=== PATIENT | female | born 1960 ===

== ENCOUNTER 2017-04-08 03:50 | Emergency (ER) | payer OTHER ==
[2017-04-08 04:09] VITALS: RESP 18; TEMP 98.6; O2SAT 100
[2017-04-08 04:57] LABS: HEMATOCRIT 40.7 % (34.0-47.0); MEAN CELL VOLUME 90.9 fl (81.0-99.0); MEAN CORPUSCULAR HEMOGLOBIN 31.1 pg (27.0-31.0); MEAN CORPUSCULAR HGB CONC 34.2 g/dL (33.0-37.0); RED CELL DISTRIBUTION WIDTH 13.9 % (11.5-14.5); WHITE BLOOD COUNT 8.1 K/uL (4.8-10.8)
--- NOTE | 2017-04-08 05:03 | ED PDOC ---
HPI: Abdomen Time Seen by Provider: 04/08/17 03:54 Chief Complaint (Nursing): Abdominal Pain Chief Complaint (Provider): Right sided abdominal tenderness History Per: Patient History/Exam Limitations: no limitations Onset/Duration Of Symptoms: Days Outside of [place] travel?: No Current Symptoms Are (Timing): Still Present Severity: Mild Pain Scale Rating Of: 4 Location Of Pain/Discomfort: RUQ, RLQ Quality Of Discomfort: Other ("pinching") Additional Complaint(s): Pt reports 5 days of a pinching right sided abdominal pain. Pt denies N/V/D. Pt states she has been eating and drinking normally. Past Medical History Reviewed: Historical Data, Nursing Documentation, Vital Signs Vital Signs: Last Vital Signs Temp 98.6 F 04/08/17 04:03 Pulse 79 04/08/17 04:03 Resp 18 04/08/17 04:03 BP 154/83 H 04/08/17 04:03 Pulse Ox 100 04/08/17 06:06 - Medical History PMH: No Chronic Diseases - Surgical History Surgical History: No Surg Hx - Family History Family History: States: No Known Family Hx - Living Arrangements Living Arrangements: With Family - Social History Current smoker - smoking cessation education provided: No Alcohol: None Drugs: Denies - Home Medications Home Medications: Ambulatory Orders Medication Instructions Recorded Benzonatate [Tessalon Perles] 100 mg PO TID #21 sgl 09/11/14 - Allergies Allergies/Adverse Reactions: Allergies Allergy/AdvReac Type Severity Reaction Status Date / Time No Known Allergies Allergy Verified 09/11/14 10:57 Review of Systems ROS Statement: Except As Marked, All Systems Reviewed And Found Negative Gastrointestinal: Positive for: Abdominal Pain. Negative for: Nausea, Vomiting , Diarrhea Physical Exam - Reviewed Nursing Documentation Reviewed: Yes Vital Signs Reviewed: Yes - Physical Exam Appears: Positive for: Well, Non-toxic, No Acute Distress Head Exam: Positive for: ATRAUMATIC, NORMAL INSPECTION, NORMOCEPHALIC Skin: Positive for: Normal Color, Warm, DRY Eye Exam: Positive for: Normal appearance ENT: Positive for: Normal ENT Inspection Neck: Positive for: Normal, Painless ROM Cardiovascular/Chest: Positive for: Regular Rate, Rhythm Respiratory: Positive for: CNT, Normal Breath Sounds Gastrointestinal/Abdominal: Positive for: Normal Exam, Bowel Sounds, Soft Back: Positive for: Normal Inspection Extremity: Positive for: Normal ROM Neurologic/Psych: Positive for: Alert, Oriented - Laboratory Results Result Diagrams: 04/08/17 04:50 04/08/17 04:50 - ECG O2 Sat by Pulse Oximetry: 100 Medical Decision Making Medical Decision Making: Endorsed pending U/A. Disposition - Clinical Impression Clinical Impression: Abdominal pain - Patient ED Disposition Is Patient to be Admitted: Transfer of Care Counseled Patient/Family Regarding: Diagnosis, Need For Followup - Disposition Disposition: Transfer of Care Disposition Time: 06:02 Condition: GOOD Instructions: Abdominal Pain (ED) Print Language: WOLOF
[2017-04-08 05:04] LABS: ALB/GLOB RATIO 1.4 (1.0-2.1); ALKALINE PHOSPHATASE 92 U/L (38-126); ALT/SGPT 38 U/L (9-52); AST/SGOT 24 U/L (14-36); BILIRUBIN,TOTAL 0.5 mg/dl (0.2-1.3); BLOOD UREA NITROGEN 14 mg/dl (7-17); CALCIUM 9.8 mg/dL (8.4-10.2); CARBON DIOXIDE 27 mmol/L (22-30); CHLORIDE 105 mmol/L (98-107); GFR AFRICAN-AMERICAN > 60; GLUCOSE,RANDOM 127 mg/dL (65-105); LIPASE 58 U/L (23-300); POTASSIUM 4.1 MMOL/L (3.6-5.0); SODIUM 143 mmol/l (132-148); TOTAL PROTEIN 8.1 G/DL (6.3-8.2)
[2017-04-08 06:50] LABS: RBC URINE 1 /hpf (0-3); URINE BILIRUBIN NEGATIVE (NEGATIVE); URINE BLOOD NEGATIVE (NEGATIVE); URINE COLOR COLORLESS (YELLOW); URINE GLUCOSE (UA) NEG (Normal); URINE KETONE NEGATIVE (NEGATIVE); URINE LEUKOCYTE ESTERASE NEG Leu/uL (Negative); URINE PROTEIN NEGATIVE (NEGATIVE); URINE UROBILINOGEN 0.2-1.0 mg/dL (0.2-1.0)
--- NOTE | 2017-04-08 08:35 | ED PDOC ---
- Laboratory Results Result Diagrams: 04/08/17 04:50 04/08/17 04:50 - ECG O2 Sat by Pulse Oximetry: 100 Disposition - Clinical Impression Clinical Impression: Abdominal pain, Abdominal pain in female - POA Present On Arrival: None - Disposition Referrals: [facility] [Outside] Disposition: Routine/Home Disposition Time: 08:34 Condition: GOOD Instructions: Abdominal Pain (ED) Print Language: SRI LANKAN
[2017-04-08 08:45] VITALS: BP 149/80; PULSE 80
--- NOTE | 2017-04-08 13:09 | CARD ---
APPROVED REPORT EKG Measurement Heart [id number] <Conclusion> Normal sinus rhythm Normal ECG
== END 2017-04-08 08:44 | disposition home or self-care (01) ==
LOC: H.ER 03:50
DX: R10.11 Right upper quadrant pain (principal)

== ENCOUNTER 2017-12-24 12:37 | Emergency (ER) | payer OTHER ==
[2017-12-24 12:46] VITALS: BP 151/75; PULSE 78; RESP 19; TEMP 98.8; O2SAT 98
--- NOTE | 2017-12-24 13:12 | ED PDOC ---
HPI: Allergic Reaction Time Seen by Provider: 12/24/17 12:52 Chief Complaint (Nursing): Abnormal Skin Integrity Chief Complaint (Provider): Abnormal Skin Integrity History Per: Patient History/Exam Limitations: no limitations Additional Complaint(s): Patient has a past medical history of rosacea since 23 years is complaining of rash, which is primarily to her face. Whenever she has exacerbations she uses Betamethasone cream and Metronidazole 500mg PO three times a day. She is asking for refill for those medications. Otherwise patient reports (-)fever, (-) throat swelling, (-) tongue / lip swelling, (-) difficulty breathing (-) dyspnea , (-) cough, (-) wheezing. Past Medical History Reviewed: Historical Data, Nursing Documentation, Vital Signs Vital Signs: Last Vital Signs Temp 98.8 F 12/24/17 12:45 Pulse 78 12/24/17 12:45 Resp 19 12/24/17 12:45 BP 151/75 H 12/24/17 12:45 Pulse Ox 98 12/24/17 12:45 - Medical History Other PMH: Rosacea - Surgical History Surgical History: No Surg Hx - Family History Family History: States: Unknown Family Hx - Social History Current smoker - smoking cessation education provided: No Alcohol: None Drugs: Denies - Home Medications Home Medications: Ambulatory Orders Medication Instructions Recorded Benzonatate [Tessalon Perles] 100 mg PO TID #21 sgl 09/11/14 Betamethasone Dipropion Augmen 1 applic TOP BID #1 tube 12/24/17 [Diprolene AF 0.05%] Metronidazole 500 mg PO TID #21 tablet 12/24/17 - Allergies Allergies/Adverse Reactions: Allergies Allergy/AdvReac Type Severity Reaction Status Date / Time No Known Allergies Allergy Verified 12/24/17 12:43 Review of Systems ROS Statement: Except As Marked, All Systems Reviewed And Found Negative (As per HPI, otherwise negative) Constitutional: Negative for: Fever Respiratory: Negative for: Other (difficulty breathing) Gastrointestinal: Negative for: Nausea, Vomiting Genitourinary Female: Negative for: Dysuria, Frequency, Incontinence, Hematuria Skin: Positive for: Rash (on face) Physical Exam - Reviewed Nursing Documentation Reviewed: Yes Vital Signs Reviewed: Yes - Physical Exam Comments: GENERAL APPEARANCE: Patient is awake, alert, oriented x 3, in no acute distress SKIN: (+) eryhtemtous rash and lesions to face. Otherwise (-) excoriations, (- ) drainage, (-) crusting of lesions is present. HENT: (-) conjunctival injection, (-) chemosis. Oropharynx: clear (-) tongue or lip swelling, (-) tonsillar exudates, (-) erythema. Airway: patent (-) stridor, (-) hoarseness. Mucous membranes moist. Nares: Patent (-) rhinorrhea. NECK: (-) lymphadenopathy, (-) tenderness. CARDIOVASCULAR: Normal rate and rhythm. (-) murmur, (-) gallop. CHEST: (-) rales, (-) wheezing, (-) dyspnea, (-) stridor. Breath sounds equal bilaterally. NEURO: Mental status: Patient is alert, oriented, and with normal strength and tone. - ECG O2 Sat by Pulse Oximetry: 98 (RA) Pulse Ox Interpretation: Normal Disposition - Clinical Impression Clinical Impression: Rosacea - Patient ED Disposition Is Patient to be Admitted: No Counseled Patient/Family Regarding: Diagnosis, Need For Followup, Rx Given - Disposition Referrals: [facility] [Outside] Uriel Gagnon DO [[facility]] - Disposition: Routine/Home Disposition Time: 13:00 Condition: STABLE Additional Instructions: Thank you for letting us take care of you today. You were treated for rosacea. The emergency medical care you received today was directed at your acute symptoms. If you were prescribed any medication, please fill it and take as directed. It may take several days for your symptoms to resolve. Return to the Emergency Department if your symptoms worsen, do not improve, or if you have any other problems. Please contact your doctor in 2 days for re-evaluation and follow up / or call one of the physicians/clinics you have been referred to that are listed on the Patient Visit Information form that is included in your discharge packet. Bring any paperwork you were given at discharge with you along with any medications you are taking to your follow up visit. Our treatment cannot replace ongoing medical care by a primary care provider (PCP) outside of the emergency department. Thank you for allowing the Critical access hospital team to be part of your care today. Prescriptions: Betamethasone Dipropion Augmen [Diprolene AF 0.05%] 1 applic TOP BID #1 tube Metronidazole 500 mg PO TID #21 tablet Instructions: Rosacea Forms: [employer] (Swiss) Print Language: POLISH Medical Decision Making Medical Decision Making: Time: 13:00 Patient provided a prescription refill for topical betamethasone and metronidazole PO. Advised to follow up with clinic or her director of transportation in 1-2 days without fail. Dermatology referral is provided. Advised to take medication as prescribed. Return to the emergency room at any time for any new or worsening symptoms. Patient states she fully agrees with and understands discharge instructions. States that she agrees with the plan and disposition. Verbalized and repeated discharge instructions and plan. I have given the patient opportunity to ask any additional questions. Scribe Attestation: Documented by Ankush Elizondo acting as a scribe for CHEMO Renteria PA-C. Scribe Attestation: All medical record entries made by the Scribe were at my direction and personally dictated by me. I have reviewed the chart and agree that the record accurately reflects my personal performance of the history, physical exam, medical decision making, and the department course for this patient. I have also personally directed, reviewed, and agree with the discharge instructions and disposition.
== END 2017-12-24 13:31 | disposition home or self-care (01) ==
LOC: H.ER 12:37
DX: L71.9 Rosacea, unspecified (principal)

== ENCOUNTER 2018-06-22 21:58 | Emergency (ER) | payer SELFPAY ==
[2018-06-22 22:13] VITALS: RESP 18; TEMP 98.3
[2018-06-22 23:38] VITALS: BP 165/88; PULSE 68; O2SAT 99
--- NOTE | 2018-06-23 01:50 | ED PDOC ---
Addendum entered and electronically signed by Liane Soto MD 06/26/18 09:33: - PA / [employer] / Resident Statement MD/DO has reviewed & agrees with the documentation as recorded. Addendum entered and electronically signed by Sheyrl Deras RPA-C 06/24/18 17:35: Addendum Addendum: 06/24/18 17:06 Correction in PE: GENERAL APPEARANCE: Patient is awake, alert, oriented x 3, in no acute distress. Resting comfortably. SKIN: Warm, dry; (-) cyanosis, (-) rash. EYES: (-) conjunctival pallor, (-) scleral icterus, (-) conjunctival hemorrhage. ENMT: Mucous membranes moist. Airway patent: (-) stridor. Pharynx: (-) erythema, (-) exudate. Nose: (+) Dry cracked skin with erythema to the tip of the nose and the nares, (+) Crusting and pus discharge. (-) Tenderness, (+) mild Edema. Nares patent with no rhinorrhea NECK: Supple, FROM (-) tenderness, (-) stiffness, (-) meningismus, (-) lymphadenopathy. EXTREMITIES: (-) deformity; NEURO AND PSYCH: Mental status as above; (-) focal findings (-) facial asymmetry. Gait: steady. Speech: clear. Correction of MDM: Time: 22:25 Initial Impression: Rosacea Initial Plan: --Flagyl 500 mg PO --Reevaluation ooo5 Repeat BP 165/88. Patient denies any complaints related to elevated BP reading in ED, advised follow up with clinic for further evaluation. Diet modifications/decreased salt intake encouraged. On re-evaluation, patient offers no additional complaints. On exam, patient remains AAOx3, in no acute distress. Lungs clear to auscultation, cardiac RRR, repeat neuro exam shows no focal findings. La/Diagnostic results d/w the patient in great detail. Diagnosis of rosacea, elevated BP reading d/w the patient. Based on history, exam and diagnostic results, plan will be for outpatient follow up with clinic. Patient instructed to follow-up with pmd / referral provided / the clinic in 1- 2 days without fail. Advised to take medication as prescribed. Return to the emergency room at any time for any new or worsening symptoms. Patient states she fully agrees with and understands discharge instructions. States that she agrees with the plan and disposition. Verbalized and repeated discharge instructions and plan. I have given the patient opportunity to ask any additional questions. Original Note: HPI: General Adult Chief Complaint (Provider): nose irritation History Per: Patient History/Exam Limitations: language barrier ([employer] [id number]) Onset/Duration Of Symptoms: Days (x1) Current Symptoms Are (Timing): Still Present Additional Complaint(s): Yajaira Moore is a 58 year old female, with a past medical history of rosacea, who presents to the emergency department for evaluation of irritation to her nose onset for x1 month. Patient has a history of rosacea and when it flares up she often requires antibiotics. She is requesting Metronidazole and steroid cream. She reports redness and cracked skin with pus drainage to the tip of the nose. She denies any fever, chills or other medical complaints. PMD: None <Sheryl Deras - Last Filed: 06/23/18 01:47> <Liane Soto - Last Filed: 06/23/18 23:59> Time Seen by Provider: 06/22/18 22:24 Chief Complaint (Nursing): Abnormal Skin Integrity Supervising Attending Note - Attestation: I have personally seen and examined this patient.: No I have reviewed all pertinent clinical information, including history, physical exam and plan: Yes <Liane Soto - Last Filed: 06/23/18 23:59> Past Medical History Reviewed: Historical Data, Nursing Documentation, Vital Signs Vital Signs: Last Vital Signs Temp 98.3 F 06/22/18 23:38 Pulse 68 06/22/18 23:38 Resp 18 06/22/18 23:38 BP 165/88 H 06/22/18 23:38 Pulse Ox 99 06/22/18 23:38 - Medical History Other PMH: Rosacea - Surgical History Surgical History: No Surg Hx - Family History Family History: States: Unknown Family Hx - Social History Current smoker - smoking cessation education provided: No Alcohol: None Drugs: Denies <Sheryl Deras - Last Filed: 06/23/18 01:47> Vital Signs: Last Vital Signs Temp 98.3 F 06/22/18 23:38 Pulse 68 06/22/18 23:38 Resp 18 06/22/18 23:38 BP 165/88 H 06/22/18 23:38 Pulse Ox 99 06/23/18 02:02 <Liane Soto - Last Filed: 06/23/18 23:59> - Home Medications Home Medications: Ambulatory Orders Medication Instructions Recorded Benzonatate [Tessalon Perles] 100 mg PO TID #21 sgl 09/11/14 RX: Betamethasone Dipropion Augmen 1 applic TOP BID #1 tube 12/24/17 [Diprolene AF 0.05%] RX: Metronidazole 500 mg PO TID #21 tablet 12/24/17 RX: Betamethasone Dipropionate 1 applic TOP BID #1 tube 06/23/18 RX: metroNIDAZOLE [Flagyl] 500 mg PO TID #21 tab 06/23/18 - Allergies Allergies/Adverse Reactions: Allergies Allergy/AdvReac Type Severity Reaction Status Date / Time No Known Allergies Allergy Verified 06/22/18 22:08 Review of Systems ROS Statement: Except As Marked, All Systems Reviewed And Found Negative Constitutional: Negative for: Fever, Chills ENT: Positive for: Other (nose irritation) <Sheryl Deras - Last Filed: 06/23/18 01:47> Physical Exam - Reviewed Nursing Documentation Reviewed: Yes Vital Signs Reviewed: Yes - Physical Exam Comments: GENERAL APPEARANCE: Patient is awake, alert, oriented x 3, in no acute distress. Resting comfortable SKIN: Warm, dry; (-) cyanosis, (-) rash. (-) Decubitus Ulcer EYES: (-) conjunctival pallor, (-) scleral icterus, (-) conjunctival hemorrhage. ENMT: Mucous membranes moist. TMs: (-) erythema. Airway patent: (-) stridor. Pharynx: (-) erythema, (-) exudate. Nose: (+) Dry cracked skin with erythema top the tip of the nose and the nares, (+) Crusting and pus discharge. (-) Tenderness, (-) Edema, (+) Nares patent and no rhinorrhea NECK: (-) tenderness, (-) stiffness, (-) meningismus, (-) lymphadenopathy. EXTREMITIES: (-) deformity; (-) cellulitis, (-) lymphangitis; (-) subungual hemorrhage; (-) edema. NEURO AND PSYCH: Mental status as above; (-) focal findings. <Sheryl Deras - Last Filed: 06/23/18 01:47> - ECG O2 Sat by Pulse Oximetry: 99 (RA) Pulse Ox Interpretation: Normal <BraedenSheryl K - Last Filed: 06/23/18 01:47> Medical Decision Making Medical Decision Making: Time: 22:24 Initial Impression: Rosacea Initial Plan: --Flagyl 500 mg PO --Reevaluation ----- Scribe Attestation: Documented by Edward Moe, acting as a scribe for Sheryl Deras PA-C. Provider Scribe Attestation: All medical record entries made by the Scribe were at my direction and personally dictated by me. I have reviewed the chart and agree that the record accurately reflects my personal performance of the history, physical exam, medical decision making, and the department course for this patient. I have also personally directed, reviewed, and agree with the discharge instructions and disposition. <Sheryl Deras - Last Filed: 06/23/18 01:47> Disposition - Disposition Disposition Time: 00:05 <Sheryl Deras - Last Filed: 06/23/18 01:47> <Liane Soto - Last Filed: 06/23/18 23:59> - Clinical Impression Clinical Impression: Rosacea, Nose irritation, Elevated blood pressure reading - Disposition Referrals: [facility] [Outside] Condition: STABLE Additional Instructions: La atencin mdica de emergencia que mcleod hijo recibi hoy se dirigi hacia los sntomas agudos de presentacin. Si a mcleod hijo le recetaron algn medicamento, llnelo y adminstrelo segn las indicaciones. Los sntomas de mcleod hijo pueden tardar varios beach en resolverse. Regrese al Departamento de Emergencias en cualquier momento si los sntomas empeoran, no mejoran o si surgen otros problemas. Comunquese con el mdico de mcleod hijo en 2 beach para reevaluarlo y odalys un seguimiento o llame a juan de los mdicos / clnicas a los que monreal sido referido que figuran en el formulario de Informacin de visita al paciente que se incluye en [place]. Lleve todos los documentos que le entregaron al momento del [place]ike junto con cualquier medicamento a mcleod visita de seguimiento. Nuestro tratamiento no puede reemplazar la atencin mdica continua por parte de un proveedor de atencin primaria (PCP) fuera del departamento de emergencias. Prescriptions: RX: Betamethasone Dipropionate 1 applic TOP BID #1 tube RX: metroNIDAZOLE [Flagyl] 500 mg PO TID #21 tab Instructions: Rosacea, High Blood Pressure in Adults, Hypertension (ED) Forms: [facility] (Russian) Print Language: MONGOLIAN
== END 2018-06-23 00:17 | disposition home or self-care (01) ==
LOC: H.ER 21:58
DX: L71.9 Rosacea, unspecified (principal); R03.0 Elevated blood-pressure reading, without diagnosis of hypertension; L98.9 Disorder of the skin and subcutaneous tissue, unspecified